=== PATIENT | female | born 1950 | race Caucasian/White ===

== ENCOUNTER 2023-02-06 12:27 | Emergency (ER) | payer MEDICARE, OTHER ==
[~2023-02-06] VITALS: Ht 180.3 cm; Wt 81.3 kg
[2023-02-06 13:04] LABS: BASO % 0.4 % (0.0-1.0); EOS # 0.2 10^3/uL (0.0-0.5); EOS % 2.2 % (0.0-3.0); HEMATOCRIT 41.5 % (36.0-47.0); HEMOGLOBIN 13.5 g/dl (12.0-15.5); LYMPH # 1.5 10^3/uL (1.5-5.0); LYMPH % 16.6 % (24.0-44.0); MEAN CORPUSCULAR HEMOGLOBIN 28.6 pg (27.0-33.0); MEAN CORPUSCULAR HGB CONC 32.5 g/dl (32.0-36.5); MEAN CORPUSCULAR VOLUME 87.9 fl (80.0-96.0); MONO # 0.8 10^3/uL (0.0-0.8); MONO % 8.7 % (2.0-8.0); NEUTROPHILS # 6.6 10^3/uL (1.5-8.5); NEUTROPHILS % 71.8 % (36.0-66.0); PLATELET COUNT, AUTOMATED 216 10^3/uL (150-450); RED BLOOD COUNT 4.72 10^6/uL (4.00-5.40); WHITE BLOOD COUNT 9.2 10^3/uL (4.0-10.0)
[2023-02-06] MEDS ORDERED: NS 1,000 ML IV ONE (13:25)
[2023-02-06 13:28] LABS: ALBUMIN 3.9 G/DL (3.2-5.2); BILIRUBIN,DIRECT 0.1 MG/DL (<0.4); BILIRUBIN,TOTAL 0.5 MG/DL (0.3-1.2); TOTAL PROTEIN 6.6 G/DL (5.7-8.2)
[2023-02-06] MEDS ORDERED: CEFDINIR 300 MG CAP (OMNICEF) PO ONE (14:40)
[2023-02-06] MEDS ORDERED: CEFD300C41 PO (14:44)
[2023-02-06 14:49] VITALS: BP 138/72; TEMP 97.2; O2SAT 99
== END 2023-02-06 14:53 | disposition home or self-care (01) ==
LOC: M ED 12:27
DX: N30.01 Acute cystitis with hematuria (principal); K59.00 Constipation, unspecified; Z91.040 Latex allergy status

== ENCOUNTER → 2024-02-10 | Outpatient (CLI) | payer MEDICARE, OTHER ==
[~2024-02-10] MED LIST: CEFD1CAP9 PO
== END ==
LOC: M SOG 13:06
PROVIDERS: ATTEND Orthopaedic Surgery
DX: M17.11 Unilateral primary osteoarthritis, right knee (principal); M25.561 Pain in right knee; Z96.651 Presence of right artificial knee joint